=== PATIENT | male | born 1965 | race Caucasian/White ===

== ENCOUNTER 2021-01-11 11:23 | Observation (INO) ==
[2021-01-11] MEDS ORDERED: Lactated Ringers 1000 ml BAG 1,000 ML IV ONE (11:42)
[2021-01-11 12:51] LABS: ABS Eosinophils 0.2 10^3/ul (0-0.6); ABS Lymphocytes 1.6 10^3/ul (1.0-4.8); ABS Monocytes 0.5 10^3/ul (0-0.8); ABS Neutrophils 5.3 10^3/ul (1.5-7.7); Eosinophil % 2.1 %; Hematocrit 42 % (42-52); Hemoglobin 14.6 g/dL (14.0-18.0); Lymphocyte % 21.4 %; Mean Corpuscular HGB Conc 35 g/dL (31-36); Mean Corpuscular Hemoglobin 30 pg (27-31); Mean Corpuscular Volume 88 fL (80-94); Mean Platelet Volume 7.8 fL (7.4-10.4); Nucleated Red Blood Cells % 0.1; Platelet Count 236 10^3/uL (150-450); Red Blood Count 4.81 10^6 /uL (4.18-5.48); Red Cell Distribution Width 14 % (10-15); White Blood Count 7.6 10^3/uL (3.5-10.8)
[2021-01-11 13:06] LABS: ALT 306 U/L (7-52); Albumin 3.9 g/dL (3.2-5.2); Albumin/Globulin Ratio 1.4 (1-3); Alkaline Phosphatase 242 U/L (35-149); Blood Urea Nitrogen 15 mg/dL (6-24); C Reactive Protein 12.93 mg/L (<8.01); CO2 Carbon Dioxide 29 mmol/L (22-32); Calcium 9.3 mg/dL (8.6-10.3); Chloride 101 mmol/L (101-111); EGFR African American 109.4 (>60); EGFR Non-African American 90.4 (>60); Globulin 2.8 g/dL (2-4); Glucose 163 mg/dL (70-100); Lipase 96 U/L (11.0-82.0); Sodium 137 mmol/L (135-145); Total Protein 6.7 g/dL (6.4-8.9)
[2021-01-11 13:26] LABS: Anion Gap 7 mmol/L (2-11)
[2021-01-11 14:28] LABS: Potassium Redraw 3.7 mmol/L (3.5-5.0)
[2021-01-11] MEDS ORDERED: Piperacillin/Tazobac ADVAN 3.375 GM in NS 0.9% 100 ml BAG 100 ML IV ONE ×2 (16:16→17:35)
[2021-01-11] MEDS ORDERED: NS 0.9% 1000 ml BAG 1,000 ML IV SCH (17:30)
[2021-01-11] MEDS ORDERED: Albuterol HFA INHALER 8 gm MDI INH PRN (17:33)
[2021-01-11] MEDS ORDERED: Dextrose 50% Syringe 50 ml 25 GM/50 ML SYRINGE IV PUSH PRN (17:37)
[2021-01-11] MEDS ORDERED: Zosyn per Pharmacy NOTE FOLLOW UP SCH (18:00)
[2021-01-11 20:57] LABS: Rapid COVID-19 Molecular Undetected (Undetected)
[2021-01-11 21:43] LABS: Urine Appearance Clear; Urine Bilirubin Negative (Negative); Urine Blood Negative (Negative); Urine Color Yellow; Urine Glucose 3+(>=500 mg/dL) (Negative); Urine Ketones Trace (Negative); Urine Nitrite Negative (Negative); Urine Protein Negative (Negative); Urine Specific Gravity 1.027 (1.002-1.030); Urine Urobilinogen Positive (Negative)
[2021-01-11] MEDS: Mometasone/Formoter 200/5 MDI INH SCH (23:16)
[2021-01-11] MEDS: ZOSYN 3.375 GM Q8H per EXTENDED INFUSION IV SCH (23:22)
[2021-01-12] MEDS: ZOSYN 3.375 GM Q8H per EXTENDED INFUSION IV SCH (05:53)
[2021-01-12 06:06] LABS: ABS Eosinophils 0.1 10^3/ul (0-0.6); ABS Lymphocytes 1.9 10^3/ul (1.0-4.8); ABS Monocytes 0.4 10^3/ul (0-0.8); ABS Neutrophils 4.1 10^3/ul (1.5-7.7); Eosinophil % 2.2 %; Hematocrit 48 % (42-52); Hemoglobin 16.1 g/dL (14.0-18.0); Lymphocyte % 29.1 %; Mean Corpuscular HGB Conc 33 g/dL (31-36); Mean Corpuscular Hemoglobin 30 pg (27-31); Mean Corpuscular Volume 89 fL (80-94); Mean Platelet Volume 7.7 fL (7.4-10.4); Platelet Count 258 10^3/uL (150-450); Red Cell Distribution Width 14 % (10-15); White Blood Count 6.5 10^3/uL (3.5-10.8)
[2021-01-12 06:16] LABS: INR 0.99 (0.86-1.15)
[2021-01-12 06:33] LABS: Albumin 3.9 g/dL (3.2-5.2); Albumin/Globulin Ratio 1.2 (1-3); Calcium 9.8 mg/dL (8.6-10.3); EGFR African American 136.2 (>60); EGFR Non-African American 112.5 (>60); Globulin 3.3 g/dL (2-4); Potassium 3.9 mmol/L (3.5-5.0); Total Bilirubin 2.1 mg/dL (0.2-1.0); Total Protein 7.2 g/dL (6.4-8.9)
[2021-01-12] MEDS ORDERED: SPIRIVA Respimat (tiotropium) 2.5 mcg/inh Inhaler INH SCH (09:00)
[2021-01-12] MEDS: Mometasone/Formoter 200/5 MDI INH SCH (10:16)
[2021-01-12] MEDS ORDERED: Lidocaine 2% PF 5 ML VIAL ONE (14:31)
[2021-01-12] MEDS ORDERED: Propofol 10 MG/ML 20 ML BTL ONE (14:31)
[2021-01-12] MEDS ORDERED: fentaNYL 100 mcg/2 ml 50 MCG/ML VIAL ONE (14:31)
[2021-01-12] MEDS ORDERED: Dexamethasone IV 4 MG/ML VIAL 1 ml VIAL ONE (14:31)
[2021-01-12] MEDS ORDERED: Ondansetron 4 mg VIAL 2 MG/ML 2 ml VIAL ONE (14:31)
[2021-01-12] MEDS ORDERED: Midazolam 2 mg/2 ml VIAL 1 mg/ml 2 ml VIAL (2 mg) ONE (14:31)
[2021-01-12] MEDS ORDERED: Bupivacaine 0.25% SDV 30 ML ONE (14:31)
[2021-01-12] MEDS ORDERED: Rocuronium 50 mg VIAL 10 mg/ml 5 ml VIAL (50 mg) ONE (14:39)
[2021-01-12] MEDS ORDERED: Lidocaine 1% w EPI 1:200,000 SDV 30 ML VIAL ONE (14:58)
[2021-01-12] MEDS ORDERED: Bupivacaine 0.5% SDV PF 30ML VIAL ONE (14:59)
[2021-01-12] MEDS ORDERED: Ondansetron 4 mg VIAL 2 MG/ML 2 ml VIAL IV PRN (15:25)
[2021-01-12] MEDS ORDERED: HYDROmorphone 1 MG/1 ML SYRINGE IV PRN (15:25)
[2021-01-12] MEDS ORDERED: Naloxone 0.4 mg VIAL 0.4 mg/ml 1 ml VIAL IV PRN (15:25)
[2021-01-12] MEDS ORDERED: DiMENhydriNATE IV 50 mg/ml 1 ml VIAL IV PUSH PRN (15:25)
[2021-01-12] MEDS ORDERED: fentaNYL 100 mcg/2 ml 50 MCG/ML VIAL IV PRN (15:25)
[2021-01-12] MEDS ORDERED: Acetaminophen IV 1 GM/100ML 100 ML IV PRN (15:25)
[2021-01-12] MEDS ORDERED: Phenylephrine 40 mcg/mL 10mL (400mcg) SYRINGE ONE (15:49)
[2021-01-12] MEDS ORDERED: Phenylephrine IV 10 MG/ML 1 ml VIAL ONE (15:52)
[2021-01-12] MEDS ORDERED: HYDROmorphone 1 MG/1 ML SYRINGE ONE (16:01)
[2021-01-12 17:46] VITALS: BP 155/90
== END 2021-01-12 18:08 | disposition home or self-care (01) ==
LOC: ED 11:23 → SSU 11:23
PROVIDERS: ADMIT Internal Medicine; ATTEND Internal Medicine